=== PATIENT | female | born 1950 | race Caucasian/White ===

== ENCOUNTER 2017-03-12 20:25 | Emergency (ER) | payer BC ==
[~2017-03-12] VITALS: Ht 160 cm; Wt 129.9 kg
[~2017-03-12 20:25] MED LIST: ALLOPURINOL100 MG PO; ASPIR 8181 M1 PO; ASPIRIN325 MG PO; CEFTIN250 MG PO; CLONIDINE HCL0.1 MG PO; COUMADIN1 MG PO; COUMADIN4 MG PO; COUMADIN5 MG PO; DAILY VITE1 EAC1 PO; DIPROSONE 0.05%15 GM TP; FLAXSEED OIL1000 M2 PO; LASIX40 MG PO; LEVEMIR FL100 UNITS/ PO; LOVENOX120 MG/0.8 SC; LOVENOX150 MG/1 M SC; METAMUCIL POWD798 GM PO; MULTI-VITAMIN1 EAC4 PO; NOVOLIN,HU100 UNITS/ SC; NOVOLOG 10100 UNITS/ SC; NOVOLOG MI100 UNIT/4 SC; NOVOLOG PE100 UNITS/ SC; NOVOLOG100 UNIT/2 SQ; NYAMYC60 GM TP; OXAYDO5 MG PO; PERCOCET 5/31 TABLET PO; PRAVASTATIN SOD40 MG PO; PRINIVIL20 MG PO; RITALIN SR, MET20 MG PO; Ritalin SR, Metadate PO; SIMVASTATIN40 MG PO; TEMOVATE 0.05%30 GM TP; TOPROL XL50 MG PO; ULTRAM ER 100100 MG PO; ULTRAM50 MG PO; VITAMIN A DAY1 EACH PO; VITAMIN B-1250 MC3 PO; VITAMIN C1000 MG PO; VITAMIN D1000 UNIT PO; VITAMIN D35000 UNIT PO; VOLTAREN 1% GE100 GM TP; WELCHOL625 MG PO; ZESTRIL,PRINIVI40 MG PO; ZYLOPRIM150 MG PO; ZYLOPRIM300 MG PO; ZYRTEC10 M3 PO
[2017-03-12 20:36] VITALS: BP 194/58
[2017-03-12 21:06] LABS: HEMATOCRIT 26.5 % (36.0-46.0); MCH 28.8 PG (29.0-34.0); MCHC 31.3 G/DL (30.0-36.0); MEAN PLAT.VOLUME 8.9 uM^3 (9.5-12.4); PLATELET COUNT 293 K/uL (156-360); RBC DIS.WIDTH-CV 15.2 % (11.8-14.6); RBC DIS.WIDTH-SD 50.9 % (39-53); RED BLOOD COUNT 2.88 M/uL (3.80-5.20); WHITE BLOOD COUNT 9.9 K/uL (4.1-10.2)
[2017-03-12 21:30] LABS: INTER. NORMALIZED RATIO 3.7; PROTHROMBIN TIME 38.8 (9.2-11.2)
[2017-03-12 21:33] LABS: CHLORIDE 102 mEq/L (99-109)
[2017-03-12 21:34] LABS: POTASSIUM 4.9 mEq/L (3.7-5.4); SODIUM 137 mEq/L (136-147)
[2017-03-12 21:35] LABS: GLUCOSE 171 mg/dL (70-99)
[2017-03-12 21:37] LABS: ANION GAP 9 MEQ/L (2-14)
[2017-03-12 21:39] LABS: GFR ESTIMATE (CALCULATED) 32 mL/min/
[2017-03-12 21:40] LABS: UREA NITROGEN (BUN) 62 mg/dL (9-23)
== END 2017-03-12 22:46 | disposition home or self-care (01) ==
LOC: EME 20:25 → EXP 20:25
DX: R04.0 Epistaxis (principal); D64.9 Anemia, unspecified; Z86.718 Personal history of other venous thrombosis and embolism; Z79.01 Long term (current) use of anticoagulants; E11.9 Type 2 diabetes mellitus without complications; Z79.4 Long term (current) use of insulin; E78.5 Hyperlipidemia, unspecified; F32.9 Major depressive disorder, single episode, unspecified; Z86.73 Personal history of transient ischemic attack (TIA), and cerebral infarction without residual deficits; I12.9 Hypertensive chronic kidney disease with stage 1 through stage 4 chronic kidney disease, or unspecified chronic kidney disease; N18.9 Chronic kidney disease, unspecified; I25.10 Atherosclerotic heart disease of native coronary artery without angina pectoris; Z95.5 Presence of coronary angioplasty implant and graft; M10.9 Gout, unspecified; Z79.82 Long term (current) use of aspirin
CPT/HCPCS: 80048; 85027; 85610; 86900; 86901; 99281; 99282

== ENCOUNTER 2017-06-16 11:20 | Inpatient (IN) | payer BC ==
[~2017-06-16] VITALS: Ht 157.5 cm; Wt 134.8 kg
[2017-06-16] VITALS (9 sets, daily range): BP systolic 141–167; BP diastolic 26–71
[2017-06-16 12:23] LABS: HEMATOCRIT 17.4 % (36.0-46.0); MCHC 30.5 G/DL (30.0-36.0); MCV 88.8 FL (83-99); MEAN PLAT.VOLUME 9.4 uM^3 (9.5-12.4); NRBC (%) 0.5 /100 WBC (0-0); PLATELET COUNT 244 K/uL (156-360); RBC DIS.WIDTH-SD 51.9 % (39-53); RED BLOOD COUNT 1.96 M/uL (3.80-5.20); WHITE BLOOD COUNT 8.4 K/uL (4.1-10.2)
[2017-06-16 12:35] LABS: TROP-I INTERPRETATION NEGATIVE; TROPONIN-I < 0.01 ng/mL (0.0-0.30)
[2017-06-16 12:42] LABS: PROTHROMBIN TIME 68.7 SEC (10.2-12.9)
[2017-06-16 12:44] LABS: PTT 58.2 SEC (25-37)
[2017-06-16 12:50] LABS: INTER. NORMALIZED RATIO 5.8
[2017-06-16 12:52] LABS: CHLORIDE 107 mEq/L (99-109); SODIUM 139 mEq/L (136-147)
[2017-06-16 12:54] LABS: GLUCOSE 158 mg/dL (70-99)
[2017-06-16 12:55] LABS: ANION GAP 9 MEQ/L (2-14)
[2017-06-16 12:57] LABS: GFR ESTIMATE (CALCULATED) 25 mL/min/
[2017-06-16 12:58] LABS: UREA NITROGEN (BUN) 97 mg/dL (9-23)
[2017-06-16] MEDS ORDERED: OXYCONTIN10 MG PO (17:10)
[2017-06-16] MEDS ORDERED: HUMALOG MI100 UNIT/6 SC (17:16)
[2017-06-16] MEDS ORDERED: MAGNESIUM400 M1 PO (17:24)
[2017-06-17 01:00] VITALS: BP 122/62
[2017-06-17 06:16] LABS: POINT-OF-CARE METER ID UU14174216
[2017-06-17 08:23] VITALS: BP 139/57
[2017-06-17 09:34] LABS: HEMATOCRIT 27.8 % (36.0-46.0); INTER. NORMALIZED RATIO 1.3; MCH 28.5 PG (29.0-34.0); MCV 89.1 FL (83-99); MEAN PLAT.VOLUME 8.8 uM^3 (9.5-12.4); PLATELET COUNT 239 K/uL (156-360); PROTHROMBIN TIME 14.6 SEC (10.2-12.9); PTT 27.4 SEC (25-37); RBC DIS.WIDTH-CV 15.3 % (11.8-14.6); RBC DIS.WIDTH-SD 48.6 % (39-53); WHITE BLOOD COUNT 7.4 K/uL (4.1-10.2)
[2017-06-17 09:35] LABS: RED BLOOD COUNT 3.12 M/uL (3.80-5.20)
[2017-06-17 11:03] LABS: POINT-OF-CARE METER ID UU14174216
[2017-06-17 13:46] VITALS: BP 170/98
[2017-06-17 14:03] LABS: HEMATOCRIT 28.9 % (36.0-46.0); MCV 89.5 FL (83-99)
[2017-06-17 14:26] LABS: ANION GAP 9 MEQ/L (2-14); CHLORIDE 110 MEQ/L (99-109); POTASSIUM 4.5 MEQ/L (3.7-5.4); SAMPLE HEMOLYSIS CHECK 0; SAMPLE ICTERIC CHECK 0; SAMPLE LIPEMIA CHECK 0; SODIUM 141 MEQ/L (136-147)
[2017-06-17 14:31] LABS: GFR ESTIMATE (CALCULATED) 30 mL/min/; GLUCOSE 188 mg/dL (70-99); UREA NITROGEN (BUN) 68 mg/dL (9-23)
[2017-06-17 16:45] VITALS: BP 149/59
[2017-06-17 18:07] LABS: HEMATOCRIT 28.4 % (36.0-46.0)
[2017-06-17 18:13] LABS: POINT-OF-CARE METER ID UU14174216
[2017-06-17 20:00] VITALS: BP 142/80
[2017-06-17 23:09] LABS: POINT-OF-CARE METER ID UU13113781
[2017-06-18] VITALS (13 sets, daily range): BP systolic 120–163; BP diastolic 50–80
[2017-06-18 06:14] LABS: ANION GAP 7 MEQ/L (2-14); CHLORIDE 109 MEQ/L (99-109); GFR ESTIMATE (CALCULATED) 32 mL/min/; GLUCOSE 167 mg/dL (70-99); POTASSIUM 4.7 MEQ/L (3.7-5.4); SAMPLE HEMOLYSIS CHECK 0; SAMPLE ICTERIC CHECK 0; SAMPLE LIPEMIA CHECK 0; SODIUM 138 MEQ/L (136-147); UREA NITROGEN (BUN) 62 mg/dL (9-23)
[2017-06-18 07:39] LABS: POINT-OF-CARE METER ID UU13113698
[2017-06-18 10:20] LABS: EOSINOPHIL (%) 1.4 % (0-5); EOSINOPHIL COUNT 0.1 K/uL (0-0.3); HEMATOCRIT 27.3 % (36.0-46.0); IMMATURE GRANULOCYTE (%) 0.3 % (0.0-0.7); INSTRUMENT ABS NEUTROPHIL CT 5.8 K/uL; MCH 27.5 PG (29.0-34.0); MCHC 30.8 G/DL (30.0-36.0); MCV 89.5 FL (83-99); MEAN PLAT.VOLUME 8.8 uM^3 (9.5-12.4); MONOCYTE (%) 8.1 % (3-12); MONOCYTE COUNT 0.6 K/uL (0-0.8); NEUTROPHIL (%) 76.4 % (45-76); NEUTROPHIL COUNT 5.8 K/uL (1.8-6.4); PLATELET COUNT 239 K/uL (156-360); RBC DIS.WIDTH-CV 15.5 % (11.8-14.6); RBC DIS.WIDTH-SD 49.7 % (39-53); RED BLOOD COUNT 3.05 M/uL (3.80-5.20); WHITE BLOOD COUNT 7.6 K/uL (4.1-10.2)
[2017-06-18 10:38] LABS: INTER. NORMALIZED RATIO 1.3; PROTHROMBIN TIME 13.9 SEC (10.2-12.9)
[2017-06-18 11:16] LABS: POINT-OF-CARE METER ID UU13113698
[2017-06-18 15:45] LABS: HEMATOCRIT 24.6 % (36.0-46.0); MCV 89.5 FL (83-99)
[2017-06-18 16:44] LABS: POINT-OF-CARE METER ID UU13113698
[2017-06-19 00:11] VITALS: BP 124/72
[2017-06-19 00:54] LABS: HEMATOCRIT 35.5 % (36.0-46.0)
[2017-06-19 01:40] LABS: HEMATOCRIT 35.8 % (36.0-46.0); MCV 87.3 FL (83-99)
[2017-06-19 03:34] VITALS: BP 135/91
[2017-06-19 06:50] LABS: EOSINOPHIL (%) 0.1 % (0-5); HEMATOCRIT 31.7 % (36.0-46.0); IMMATURE GRANULOCYTE (%) 0.5 % (0.0-0.7); IMMATURE GRANULOCYTE COUNT 0.1 K/uL; LYMPHOCYTE COUNT 0.3 K/uL (1.0-2.8); MCH 28.2 PG (29.0-34.0); MCHC 31.9 G/DL (30.0-36.0); MCV 88.5 FL (83-99); MEAN PLAT.VOLUME 9.1 uM^3 (9.5-12.4); MONOCYTE (%) 5.3 % (3-12); MONOCYTE COUNT 0.9 K/uL (0-0.8); PLATELET COUNT 214 K/uL (156-360); RBC DIS.WIDTH-CV 15.1 % (11.8-14.6); RBC DIS.WIDTH-SD 47.4 % (39-53); RED BLOOD COUNT 3.58 M/uL (3.80-5.20); WHITE BLOOD COUNT 16.3 K/uL (4.1-10.2)
[2017-06-19 08:00] VITALS: BP 142/58
[2017-06-19 12:46] LABS: POINT-OF-CARE METER ID UU13113717
[2017-06-19 15:57] LABS: HEMATOCRIT 33.9 % (36.0-46.0)
[2017-06-19 16:17] LABS: POINT-OF-CARE METER ID UU13113717
[2017-06-19 19:55] VITALS: BP 160/68
[2017-06-19 21:14] LABS: POINT-OF-CARE METER ID UU14188625
[2017-06-20 00:03] VITALS: BP 155/64
[2017-06-20 01:19] LABS: HEMATOCRIT 30.7 % (36.0-46.0); MCV 86.2 FL (83-99)
[2017-06-20 04:08] VITALS: BP 150/65
[2017-06-20 05:50] LABS: HEMATOCRIT 28.4 % (36.0-46.0); MCH 28.6 PG (29.0-34.0); MCHC 32.4 G/DL (30.0-36.0); MCV 88.2 FL (83-99); MEAN PLAT.VOLUME 8.7 uM^3 (9.5-12.4); PLATELET COUNT 183 K/uL (156-360); RBC DIS.WIDTH-CV 14.9 % (11.8-14.6); RBC DIS.WIDTH-SD 47.4 % (39-53); RED BLOOD COUNT 3.22 M/uL (3.80-5.20); WHITE BLOOD COUNT 8.9 K/uL (4.1-10.2)
[2017-06-20 06:24] LABS: ANION GAP 5 MEQ/L (2-14); CHLORIDE 105 MEQ/L (99-109); GFR ESTIMATE (CALCULATED) 22 mL/min/; GLUCOSE 192 mg/dL (70-99); POTASSIUM 4.8 MEQ/L (3.7-5.4); SAMPLE HEMOLYSIS CHECK 0; SAMPLE ICTERIC CHECK 0; SAMPLE LIPEMIA CHECK 0; SODIUM 133 MEQ/L (136-147); UREA NITROGEN (BUN) 49 mg/dL (9-23)
[2017-06-20 08:43] VITALS: BP 170/67
[2017-06-20 12:18] VITALS: BP 149/63
[2017-06-20 12:23] LABS: POINT-OF-CARE METER ID UU14188625
[2017-06-20 12:32] LABS: HEMATOCRIT 31.1 % (36.0-46.0); MCV 88.9 FL (83-99)
[2017-06-20 16:37] VITALS: BP 163/71
[2017-06-20 17:47] LABS: POINT-OF-CARE METER ID UU14188625
[2017-06-20 20:00] VITALS: BP 150/66
[2017-06-20 20:22] LABS: HEMATOCRIT 29.4 % (36.0-46.0); MCV 87.5 FL (83-99)
[2017-06-21] VITALS: BP 148/60
[2017-06-21 04:15] VITALS: BP 148/64
[2017-06-21 05:45] LABS: HEMATOCRIT 28.1 % (36.0-46.0)
[2017-06-21 06:07] LABS: ANION GAP 6 MEQ/L (2-14); CHLORIDE 105 MEQ/L (99-109); GFR ESTIMATE (CALCULATED) 24 mL/min/; GLUCOSE 244 mg/dL (70-99); POTASSIUM 5.1 MEQ/L (3.7-5.4); SAMPLE HEMOLYSIS CHECK 0; SAMPLE ICTERIC CHECK 0; SAMPLE LIPEMIA CHECK 0; SODIUM 133 MEQ/L (136-147); UREA NITROGEN (BUN) 57 mg/dL (9-23)
[2017-06-21 07:25] VITALS: BP 158/78
[2017-06-21 11:10] VITALS: BP 160/70
[2017-06-21 11:24] LABS: HEMATOCRIT 27.4 % (36.0-46.0); MCV 87.3 FL (83-99)
[2017-06-21] MEDS ORDERED: PANTOPRAZOLE SO40 MG PO (13:16)
== END 2017-06-21 15:27 | disposition home or self-care (01) | DRG 811 ==
LOC: EME 11:20 → 4EAST 13:50 → EDOF 13:50 → ENRESERV 13:52 → CANRESERV 13:52 → ENRESERV 13:53 → EDOF 21:56 → ENRESERV 22:00 → 4EAST 06-17 00:55 → ENRESERV 06-18 10:37 → 5SOUTH 06-18 17:47
PROVIDERS: Hospitalist; Internal Medicine; Internal Medicine Gastroenterology; Nurse Practitioner Family
PROC: 30233N1 Transfusion of Nonautologous Red Blood Cells into Peripheral Vein, Percutaneous Approach (ICD-10-PCS; principal; 2017-06-16)
PROC: 0DB68ZX Excision of Stomach, Via Natural or Artificial Opening Endoscopic, Diagnostic (ICD-10-PCS; 2017-06-17)
PROC: 0DBL8ZZ Excision of Transverse Colon, Via Natural or Artificial Opening Endoscopic (ICD-10-PCS; 2017-06-18)
DX: D62 Acute posthemorrhagic anemia (principal); K92.1 Melena; R79.1 Abnormal coagulation profile; T45.515A Adverse effect of anticoagulants, initial encounter; J96.01 Acute respiratory failure with hypoxia; E87.70 Fluid overload, unspecified; N17.9 Acute kidney failure, unspecified; K25.7 Chronic gastric ulcer without hemorrhage or perforation; K64.8 Other hemorrhoids; K29.70 Gastritis, unspecified, without bleeding; E11.22 Type 2 diabetes mellitus with diabetic chronic kidney disease; I12.9 Hypertensive chronic kidney disease with stage 1 through stage 4 chronic kidney disease, or unspecified chronic kidney disease; N18.3 Chronic kidney disease, stage 3 (moderate); M10.9 Gout, unspecified; D68.61 Antiphospholipid syndrome; D68.62 Lupus anticoagulant syndrome; M32.9 Systemic lupus erythematosus, unspecified; F41.9 Anxiety disorder, unspecified; G43.909 Migraine, unspecified, not intractable, without status migrainosus; G47.30 Sleep apnea, unspecified; K63.5 Polyp of colon; E78.5 Hyperlipidemia, unspecified; I25.10 Atherosclerotic heart disease of native coronary artery without angina pectoris; K59.09 Other constipation; I27.20 Pulmonary hypertension, unspecified; G89.29 Other chronic pain; M19.90 Unspecified osteoarthritis, unspecified site; F32.9 Major depressive disorder, single episode, unspecified; E66.9 Obesity, unspecified; Z95.5 Presence of coronary angioplasty implant and graft; Z23 Encounter for immunization; Z79.01 Long term (current) use of anticoagulants; Z79.82 Long term (current) use of aspirin; Z79.4 Long term (current) use of insulin; Z88.0 Allergy status to penicillin; Z86.718 Personal history of other venous thrombosis and embolism; Z86.73 Personal history of transient ischemic attack (TIA), and cerebral infarction without residual deficits; Z68.43 Body mass index [BMI] 50.0-59.9, adult; Z88.5 Allergy status to narcotic agent; Z88.1 Allergy status to other antibiotic agents
CPT/HCPCS: 71020; 74176; 76705; 78582; 80048; 80069; 82948; 83880; 84484; 85014; 85018; 85025; 85027; 85610; 85730; 86850; 86880; 86900; 86901; 86920; 88305; 88342 TC; 90686; 93005; 94799; 99281; 99285; A9540; A9567; C9113; J1815; J1940; J2250; J3010; J3430; J7040; J7050; P9016

== ENCOUNTER → 2017-09-09 | Outpatient (CLI) | payer BC ==
[~2017-09-09] VITALS: Ht 157.5 cm; Wt 172.3 kg
[~2017-09-09] MED LIST changes: +ATARAX,VISTARIL25 MG PO; +FLEXERIL10 MG PO; +HUMALOG MI100 UNIT/6 SC; +LASIX20 MG PO; +MAGNESIUM400 M1 PO; +OXYCONTIN10 MG PO; +PANTOPRAZOLE SO40 MG PO
[2017-09-09 07:53] LABS: POINT-OF-CARE METER ID UU14107333
[2017-09-09 08:16] LABS: INTER. NORMALIZED RATIO 3.6; PROTHROMBIN TIME 41.7 SEC (10.2-12.9)
== END | disposition home or self-care (01) ==
LOC: AMB 08-24 14:00
PROVIDERS: Internal Medicine Gastroenterology
PROC: 0DJ08ZZ Inspection of Upper Intestinal Tract, Via Natural or Artificial Opening Endoscopic (ICD-10-PCS; principal; 2017-09-09)
DX: Q27.33 Arteriovenous malformation of digestive system vessel (principal); K26.9 Duodenal ulcer, unspecified as acute or chronic, without hemorrhage or perforation; D68.61 Antiphospholipid syndrome; D68.62 Lupus anticoagulant syndrome; D50.0 Iron deficiency anemia secondary to blood loss (chronic); Z86.718 Personal history of other venous thrombosis and embolism; E78.5 Hyperlipidemia, unspecified; E11.22 Type 2 diabetes mellitus with diabetic chronic kidney disease; N18.9 Chronic kidney disease, unspecified; Z95.5 Presence of coronary angioplasty implant and graft; Z79.82 Long term (current) use of aspirin; Z79.4 Long term (current) use of insulin; Z79.01 Long term (current) use of anticoagulants; E66.9 Obesity, unspecified; Z68.43 Body mass index [BMI] 50.0-59.9, adult
CPT/HCPCS: 82948; 85610